=== PATIENT | male | born 1960 | race Caucasian/White ===

== ENCOUNTER 2017-05-12 06:07 | Observation (INO) | payer MEDICARE ==
--- NOTE | ~2017-05-12 | CT16 ---
[facility] A Service of [facility] RADIOLOGY TEXT RESULTS PATIENT: RAMSES ROLAND LOCATION: [facility] : 56 UNIT #: [id number] AGE: [address]: Rayshawn Gomez MD SEX: M ORDER DR: [id number] [facility] [address] [place], [place] [address] [id number] E MR#: [id number] Acc #: [id number] NAME: RAMSES ROLAND : 1960 SEX: M STUDY DATE/TIME: 05/12/2017 0859 UNIT: [facility] ROOM: STUDY DESCRIPTION: CT Angio Chest for PE Attending Physician: Rayshawn Gomez M.D. Ordering Physician: Rayshawn Gomez M.D. Primary Care Physician: No Primary Care Physician MEDICAL IMAGING REPORT This report is preliminary unless electronic signature is present EXAM CT angiogram chest for pulmonary embolism, 05/12/2017, 0849 hours. CLINICAL HISTORY Burning pain in the right leg today with chest pressure for 2 hours today. History of prior blood clots. COMPARISON Chest CT, 10/26/2005. TECHNIQUE Dynamic helical CT angiographic images were obtained from the thoracic inlet through the adrenal glands. 3-D sagittal and coronal reconstructions were performed. Contrast was Isovue-370 100 mL IV. Total exam DLP 561 mGy-cm. This CT exam was performed with one or more of the following radiation dose reduction techniques: automatic exposure control, adjustment of mA and/or kV according to patient size, and iterative reconstruction. FINDINGS Images through the thoracic inlet demonstrate no thyroid lesion or adenopathy. Images through the chest demonstrate diagnostic quality opacification of the pulmonary arteries. Main pulmonary arteries are normal in caliber. There are no filling defects present to suggest the presence of emboli. The aorta is moderately well opacified and is normal in caliber with no evidence of dissection. Coronary calcifications are present. Cardiac chambers, pericardium and esophagus are normal. There is no lymphadenopathy. Lung window images are unremarkable. [facility] A Service of [facility] RADIOLOGY TEXT RESULTS PATIENT: RAMSES ROLAND LOCATION: [facility] : 56 UNIT #: [id number] AGE: [address]: Rayshawn Gomez MD SEX: M ORDER DR: Limited views through the upper abdomen demonstrate diffuse low attenuation of the liver relative to the spleen suggesting fatty infiltration. There is no focal liver lesion. The spleen, visualized portions of the pancreas, and adrenal glands are normal. IMPRESSION 1. No evidence of pulmonary embolism. Normal aorta. 2. The lungs are clear and there is no pleural effusion or pneumothorax. 3. Mild fatty change in the liver. Dictated by... Kareen Rangel M.D. THIS IS AN ELECTRONICALLY VERIFIED REPORT Kareen Rangel M.D. at 05/12/2017 2:34 PM NEVILLE/vinayak TD: 05/12/2017 10:17 JOB #: [id number] MEDICAL IMAGING REPORT Page 1 of 1 COPY
--- NOTE | ~2017-05-12 | TH ---
Unit #: [id number] #: [id number] Patient: RAMSES ROLAND [id number] [address] [address] [id number] I MR#: [id number] NAME: RAMSES ROLAND : 1960 SEX: M STUDY DATE/TIME: UNIT: [facility] ROOM: 569 STUDY DESCRIPTION: Nuclear Study Attending Physician: Judie Bravo M.D. Primary Care Physician: No Primary Care Physician CARDIOLOGY REPORT EXAM Exercise Cardiolite Stress Test - Nuclear Portion PROCEDURE Using technetium 99m labeled Cardiolite, rest and stress SPECT images were obtained. Multiple SPECT images were obtained in various views including horizontal and vertical long axis and short axis views of the left ventricle. Images were obtained by gated SPECT method. The patient was administered 10.74 mCi of Cardiolite at rest. The patient was administered 33.2 mCi of Cardiolite at peak exercise. Total exercise time is 8 minutes 20 seconds. On the stress images, there is normal perfusion noted. The rest images show normal perfusion. Comparing rest and stress images, there is no stress-induced ischemia noted. The left ventricular ejection fraction is calculated to be 68%. There is no focal wall motion abnormality seen. CONCLUSION 1. No stress-induced ischemia noted. 2. The left ventricular ejection fraction is calculated to be 68%. 3. There is no focal wall motion abnormality seen. 4. Normal exercise Cardiolite stress test. Dictated by... Akosua Otto TD: 05/14/2017 08:27 JOB #: [id number] Unit #: [id number] #: [id number] Patient: RAMSES ROLAND CARDIOLOGY REPORT Page 1 of 1 X Adele Jonas MD <ELECTRONICALLY SIGNED> 05/28/17 1429 CARDIOLOGY REPORT
--- NOTE | ~2017-05-12 | ST ---
Unit #: [id number] #: [id number] Patient: RAMSES ROLAND [id number] [facility]. [address] [address] [id number] I MR#: [id number] NAME: RAMSES ROLAND : 1960 SEX: M STUDY DATE/TIME: 05/13/2017 UNIT: [facility] ROOM: 569 STUDY DESCRIPTION: Stress Test Attending Physician: Judie Bravo M.D. Primary Care Physician: No Primary Care Physician CARDIOLOGY REPORT EXAM EKG Portion of a Cardiolite Exercise Stress Test REASON FOR EXAM Chest pain. DESCRIPTION Baseline EKG is normal sinus rhythm with ventricular rate of 81 and nonspecific T wave changes. The patient exercised on the treadmill according to the Hayden protocol for 8 minutes 20 seconds achieving a workload of 10.10 METs. Resting heart rate was 81. Maximal heart rate was 148 beats/minute representing 91% of maximal predicted heart rate for age. The patient's symptoms were some right knee pain. There were no ST or ischemic changes. The patient did experience a rare unifocal PVC. The test was stopped due to achieving heart rate. IMPRESSION This is a negative test. There were no ischemic changes. There was a rare unifocal PVC during the test. The patient had some right knee pain. Please correlate with Cardiolite imaging. Dictated by... Yola Pollack APRN for Akosua Otto TD: 05/13/2017 09:44 JOB #: [id number] CARDIOLOGY REPORT Page 1 of 1 X CARDIOLOGY REPORT
--- NOTE | ~2017-05-12 | CR72 ---
[facility] A Service of [facility] & [facility] RADIOLOGY TEXT RESULTS PATIENT: RAMSES ROLAND LOCATION: [facility] [place] [facility] 569-01 : [birth year] UNIT #: [id number] AGE: [address]: Judie Bravo MD SEX: M ORDER DR: [id number] [facility] [address], [place] [address] [id number] E MR#: [id number] Acc #: [id number] NAME: RAMSES ROLAND : 1960 SEX: M STUDY DATE/TIME: 05/12/2017 6:35 UNIT: [facility] ROOM: STUDY DESCRIPTION: CR Chest Single View Portable Attending Physician: Rayshawn Gomez M.D. Ordering Physician: Rayshawn Gomez M.D. Primary Care Physician: Primary Care Physician No MEDICAL IMAGING REPORT This report is preliminary unless electronic signature is present EXAM Portable chest, 05/12/2017 COMPARISON 03/25/2015 CLINICAL HISTORY Chest pain since this morning. FINDINGS A single AP portable view of the chest shows both lungs to be clear. The heart is normal in size. The mediastinal contour is normal. No significant bone abnormalities are seen. IMPRESSION Normal portable chest. Dictated by... Lincoln Kim M.D. THIS IS AN ELECTRONICALLY VERIFIED REPORT Lincoln Kim M.D. at 05/18/2017 10:37 AM LEXA/dimas TD: 05/12/2017 07:56 JOB #: [id number] MEDICAL IMAGING REPORT Page 1 of 1 COPY
--- NOTE | ~2017-05-12 | CO ---
Unit #: [id number] #: [id number] Patient: RAMSES ROLAND [id number] [address] [place], [place] [address] [id number] I MR#: [id number] NAME: ARMSES ROLAND ROOM: 569 Age: 56 Sex: M Admission Date: 05/12/2017 : 1960 Attending Physician: Lorena Duran M.D. Primary Care Physician: No Primary Care Physician CONSULTATION REPORT REASON FOR CONSULTATION Chest pain. HISTORY OF PRESENT ILLNESS This is a 56-year-old white male who comes to the emergency room with a complaint of chest pain. He says at 3:30 in the a.m. he had substernal chest pain which he describes as a "clamp or vise" type pain that did not radiate to his neck, arm or jaw. He had no associated shortness of breath, diaphoresis or nausea. He says he has occasional right shoulder and hip pain which he contributes to osteoarthritis. Yesterday, prior to the event, he drank six or seven beers in the afternoon. He says he has occasional muscle soreness in his legs when he walks. He has recent ankle swelling. Reports occasional dizziness but no fever, chills or palpitations. In the emergency room, his troponin is negative. Electrocardiogram normal. Urine drug screen positive for cocaine and opiates. His risk factors for ischemic heart disease include hypertension and nicotine abuse for which he quit smoking over a year ago. He does drink alcohol on most occasions. He had a stress test in 2009 that was normal. He is on anticoagulation with Coumadin for a history of pulmonary embolism that was diagnosed a year and a half ago when he underwent total knee replacement. PAST MEDICAL HISTORY 1. 2D echocardiogram 09/21/2010 shows an ejection fraction of 50% to 55%. He had no regional wall abnormalities. There was trace mitral regurgitation and trace tricuspid regurgitation. 2. Lexiscan Cardiolite stress test 09/21/2010 showed no ischemia. Ejection fraction of 54%. 3. Hypertension. 4. GERD. 5. Osteoarthritis,. 6. Chronic back pain. 7. Pulmonary embolism, on anticoagulation with Coumadin. PAST SURGICAL HISTORY 1. Back surgery. 2. Neck surgery. 3. Left jaw surgery. 4. Right knee surgery. SOCIAL HISTORY The patient is and not employed. He quit smoking a year and a half ago but previously smoked at least a pack of cigarettes every three to four days. He admits to drinking seven to eight beers on most Unit #: [id number] #: [id number] Patient: ARMSES ROLAND. FAMILY HISTORY Negative for premature coronary artery disease in immediate family member. ALLERGIES Codeine. HOME MEDICATIONS 1. Hydrochlorothiazide 25 mg daily. 2. Hydrocodone/acetaminophen 10/325 t.i.d. p.r.n. 3. Meloxicam 15 mg daily. 4. Coumadin 5 mg daily. 5. Fluoxetine 20 mg - I am not sure if it is daily. 6. Benadryl 25 mg daily. 7. Clonazepam 1 mg q. h.s. 8. Lisinopril 40 mg daily. 9. Prilosec 20 mg daily. REVIEW OF SYSTEMS CONSTITUTIONAL: Negative for fever or chills. Reports muscle weakness in his lower extremities and generalized weakness. No fatigue. No fever or chills. HEENT: No headache, no hearing or visual changes or difficulty with swallowing. Has occasional dizziness. CARDIOVASCULAR: Has chest pain as described in the HPI. No palpitations. Denies paroxysmal nocturnal dyspnea or orthopnea. No syncope or near syncope. RESPIRATORY: Negative for dyspnea, cough or hemoptysis. GASTROINTESTINAL: No abdominal pain, nausea or vomiting. No constipation or melena. EXTREMITIES: Has occasional lower extremity edema. Reports muscle weakness. PHYSICAL EXAMINATION VITAL SIGNS: Blood pressure 157/99, heart rate 82, temperature 97.7, BMI 30. GENERAL: This is a mildly obese 56-year-old white male who is in no acute respiratory distress. No (1) . He is awake, alert and oriented. There are no focal weaknesses. NECK: Trachea is midline. No thyromegaly or lymphadenopathy. No jugular venous distention. HEART: S1, S2 heart sounds are normal. No murmurs, no rubs or clicks. Regular rate and rhythm. LUNGS: Clear without rales, rhonchi or wheezing. ABDOMEN: Soft, nontender. Bowel sounds present. No organomegaly. EXTREMITIES: Without leg edema. SKIN: Warm and dry. DIAGNOSTIC STUDIES LABORATORY: Glucose 94, BUN 42, creatinine 2.9, sodium 136, potassium 3.8, AST 93, ALT 42, CK 3172. Alcohol is 79. Protime 43.8, INR 4.0. CK MB 33.8, troponin less than 0.05 x2. White count 10.1, hemoglobin 15.3, hematocrit 44.7, platelet count 367. IMAGING: CT angio of the chest negative for pulmonary embolism. Mild fatty change in liver. Unit #: [id number] #: [id number] Patient: RAMSES ROLAND Chest x-ray - no active disease. CARDIOVASCULAR: Electrocardiogram - normal sinus rhythm, rate 88 beats/minute, otherwise normal. IMPRESSION 1. Chest pain, probably secondary to gastroesophageal reflux disease. 2. Cocaine abuse. 3. ETOH abuse. 4. Rhabdomyolysis. 5. Acute kidney injury secondary to rhabdomyolysis. 6. History of pulmonary embolism, on anticoagulation with Coumadin. PLAN 1. Cardiology was consulted for evaluation of chest pain. The patient's chest pain is most likely secondary to GERD. Will schedule the patient for Lexiscan Cardiolite stress test in the a.m. to rule out coronary artery disease given his repeat troponin is negative. 2. Will alkalize the urine with bicarbonate IV fluids. 3. Check thyroid function. 4. Repeat the electrocardiogram. 5. Start on IV Protonix for GERD. 6. 2D echocardiogram will be obtained to evaluate left ventricular systolic function. 7. Will follow the patient with you. Thank you for allowing us to assist with this patient's care. Dictated by... Rasta Espino A.P.R.N. for Akosua Rodriguez/dipti TD: 05/13/2017 06:42 JOB #: [id number] CONSULTATION REPORT Page 1 of 1 X Rasta Espino APRN X CONSULTATION REPORT
--- NOTE | ~2017-05-12 | EKG ---
PATIENT: RAMSES ROLAND UNIT #: [id number] Ventricular Rate: 80 BPM Atrial Rate: 80 BPM P-R Interval: 152 ms QRS Duration: 84 ms Q-T Interval: 364 ms QTC Calculation(Bezet): 419 ms P [place]: 56 degrees Calculated R [place]: 25 degrees Calculated T [place]: 38 degrees Diagnosis Line: Normal sinus rhythm Diagnosis Line: Normal ECG Diagnosis Line: When compared with ECG of 12-MAY-2017 06:12, Diagnosis Line: (unconfirmed) Diagnosis Line: No significant change was found Diagnosis Line: Confirmed by OBEY GERARDO MD ([id number]) on Diagnosis Line: 05/13/2017 8:03:11 AM INTERPRETING MD: HUMAIRA GRAMAJO
--- NOTE | ~2017-05-12 | US77 ---
[facility] A Service of [facility] & [facility] RADIOLOGY TEXT RESULTS PATIENT: RAMSES ROLAND LOCATION: [facility] : 56 UNIT #: [id number] AGE: [address]: Rayshawn Gomez MD SEX: M ORDER DR: [id number] [facility] [address] [place], [place] [address] [id number] E MR#: [id number] Acc #: [id number] NAME: RAMSES ROLAND : 1960 SEX: M STUDY DATE/TIME: 05/12/2017 14:47 UNIT: [facility] ROOM: STUDY DESCRIPTION: US Kidney Bilateral Complete Attending Physician: Rayshawn Gomez M.D. Ordering Physician: Lorena Duran M.D. MEDICAL IMAGING REPORT This report is preliminary unless electronic signature is present EXAM Renal ultrasound 05/12 INDICATIONS Abnormal labs. Acute renal insufficiency. Elevated creatinine to 0.9 with low eGFR 22.8. FINDINGS Sonogram evaluation is for the kidneys in multiple planes. Right kidney measures 10.2 cm in tero-dd-npsn length. Left kidney measures 11.7 cm. Both are morphologically normal and non-obstructed. The bladder is normal. IMPRESSION Normal non-obstructed kidneys. Dictated by... Dameon Crowe Jr., M.D. THIS IS AN ELECTRONICALLY VERIFIED REPORT Dameon Crowe Jr., M.D. at 05/12/2017 4:58 PM AR/benjamin TD: 05/12/2017 16:49 JOB #: [id number] MEDICAL IMAGING REPORT Page 1 of 1 COPY
--- NOTE | ~2017-05-12 | HP ---
Unit #: [id number] #: [id number] Patient: RAMSES ROLAND [id number] [facility]. [place], [place] [address] [id number] E MR#: [id number] NAME: RAMSES ROLAND ROOM: Age: 56 Sex: M Admission Date: 05/12/2017 : 1960 Attending Physician: Rayshawn Gomez M.D. Primary Care Physician: No Primary Care Physician HISTORY AND PHYSICAL CHIEF COMPLAINT Chest pain. HISTORY OF PRESENT ILLNESS The patient is a 56-year-old male with a past medical history of alcohol abuse, PE, chronic anticoagulation, hypertension, chronic back pain. He presented to the emergency department for evaluation of the above. The patient states that he was in his usual state of health until the day of admission, when he developed chest pain. He states that it happened around 3:30 in the morning. He was not asleep at that time. He states that the pain is in the mid chest. He describes it as "like a vice." It did not radiate. He denies any shortness of breath, nausea or diaphoresis in association with the pain. He states that he had similar pain in 2009. He had a stress test at that time that was negative. In the emergency department initial pulse and blood pressure were 89 and 142/99 respectively. Oxygen saturation was 98% on room air. He had a CT of the chest PE protocol that showed no PE. EKG showed normal sinus rhythm at 88 beats per minute. Initial cardiac enzymes are negative. He also received a GI cocktail as well as sublingual nitroglycerin and [place]. The patient states that the pain is still present. Notable labs include BUN and creatinine of 42 and 2.9 respectively. Urine tox screen is positive for cocaine and opiates. CPK is 3,172. Blood alcohol level is 79. He is being admitted to [facility] for evaluation and further treatment. PAST MEDICAL HISTORY 1. Admission to [facility] 09/20/2010 for chest pain. He underwent stress test during that admission that was negative and showed an ejection fraction of 54%. 2. Hypertension. 3. Pulmonary embolism on chronic anticoagulation with Coumadin. 4. Chronic back pain, maintained on narcotics. PAST SURGICAL HISTORY 1. Neck surgery. 2. Surgery on the mandible for what sounds like possible osteonecrosis. 3. Knee surgery. SOCIAL HISTORY The patient lives with his . There is no tobacco use. He is a former Unit #: [id number] #: [id number] Patient: RAMSES ROLAND smoker. He quit about a year and a half ago. He states that he smoked for 45 years. He denied illicit drug use, although his tox screen was positive for cocaine. He states that he is an alcoholic. His last drink was yesterday. He states that prior to that it had been about a year since he had anything to drink. He states that he goes to [employer]. He is retired. FAMILY HISTORY Notable for his paternal uncle dying of a myocardial infarction in his 70s. ALLERGIES Codeine. HOME MEDICATIONS 1. Hydrochlorothiazide 25 mg daily. 2. Hydrocodone/acetaminophen 10/325 mg t.i.d. p.r.n. 3. Meloxicam 15 mg daily. 4. Coumadin 5 mg daily. 5. Fluoxetine is listed as 20 mg t.i.d. 6. Diphenhydramine 25 mg daily. 7. Klonopin 1 mg at bedtime. 8. Zestril 40 mg daily. 9. Prilosec 20 mg daily. REVIEW OF SYSTEMS A complete review of systems is negative except as indicated in the history of present illness. The patient states that he has not taken any medication for three days due to not being at home. PHYSICAL EXAMINATION GENERAL: The patient is a male who smells of alcohol. He is in no acute distress. VITALS: Temperature 97.7, pulse 89, respiratory rate 17, blood pressure 142/99, oxygen saturation 98% on room air. HEENT: The head is atraumatic. Mucous membranes are moist. NECK: Supple. Trachea midline. LUNGS: Clear to auscultation bilaterally with no increased work of breathing. HEART: Regular rate and rhythm. ABDOMEN: Soft and nontender with bowel sounds present in all four quadrants. EXTREMITIES: Nontender with no pedal edema. NEUROLOGIC: The patient is awake and alert. He follows commands. PSYCHIATRIC: Mood and affect are normal. The patient is cooperative. SKIN: Skin of examined areas is warm and dry. DIAGNOSTIC STUDIES IMAGING: CT of the chest PE protocol shows no PE. Lungs are clear. Chest x-ray is normal. LABORATORY: Urine tox screen is positive for cocaine and opiates. CPK is 3,172. CMP notable for CO2 18. Anion gap is 13, BUN 42, creatinine 2.9, AST 93, ALT 42. Troponin is less than 0.05. INR is 4. Blood alcohol level is 79. CBC is completely normal. CARDIOVASCULAR: EKG shows normal sinus rhythm with a rate of 88 beats per Unit #: [id number] #: [id number] Patient: RAMSES ROLAND. ASSESSMENT The patient is a 56-year-old male with 1. Chest pain. The patient had a stress test in 2009 that was negative. He is cocaine positive today. 2. Acute kidney injury. The patient's creatinine was 1.3 on 09/20/2010 and it is 2.9 today. He is on several medications which could be contributing, including meloxicam, Zestril, hydrochlorothiazide. The patient received 1 liter of normal saline in the emergency department. 3. Rhabdomyolysis with an initial CPK of 3,172, likely related to cocaine abuse. 4. Cocaine abuse. The patient denies illicit drug use. 5. Alcohol abuse with intoxication. 6. History of PE, maintained on chronic anticoagulation with Coumadin. Initially CT of the chest PE protocol was ordered due to the patient saying that he had not taken medication for four days and presumably thinking that his INR was going to be subtherapeutic. He received contrast prior to creatinine being checked. 7. Chronic anticoagulation with Coumadin. The patient's INR is 4. 8. Hypertension. 9. Chronic back pain, maintained on hydrocodone. 10. Former smoker. 11. Transaminitis, likely secondary to alcohol abuse. PLAN 1. Admit for observation to intermediate level. 2. Fasting lipid panel. 3. Serial cardiac enzymes. 4. Consult Dr. Jonas regarding chest pain. 5. Urine sodium and creatinine and eosinophils. 6. Renal ultrasound. 7. Strict ins and outs. 8. Alcohol withdrawal protocol with fluids to start now. 9. Hold lisinopril, hydrochlorothiazide, meloxicam. 10. resident care manager, social science manager consult regarding alcohol and cocaine abuse. 11. Check magnesium level. 12. Repeat labs in the morning, including INR and CPK. 13. Additional workup and consults based on the above. Dictated by Lorena Duran M.D. AW/gz TD: 05/12/2017 13:23 JOB #: [id number] Unit #: [id number] #: [id number] Patient: RAMSES ROLAND HISTORY AND PHYSICAL Page 1 of 1 X Lorena Duran MD X HISTORY AND PHYSICAL
--- NOTE | ~2017-05-12 | EKG ---
PATIENT: RAMSES ROLAND UNIT #: [id number] Ventricular Rate: 88 BPM Atrial Rate: 88 BPM P-R Interval: 148 ms QRS Duration: 86 ms Q-T Interval: 356 ms QTC Calculation(Bezet): 430 ms P [place]: 48 degrees Calculated R [place]: 46 degrees Calculated T [place]: 46 degrees Diagnosis Line: Normal sinus rhythm Diagnosis Line: Normal ECG Diagnosis Line: When compared with ECG of 21-SEP-2010 11:03, Diagnosis Line: No significant change was found Diagnosis Line: Confirmed by OBEY GERARDO MD ([id number]) on Diagnosis Line: 05/13/2017 7:58:29 AM INTERPRETING MD: HUMAIRA GRAMAJO
[~2017-05-12 06:07] MED LIST: LORTAB 10-5001 EACH PO; NEURONTIN; PRILOSEC PO; PRINIVIL40 MG PO; PROZAC PO; VISTARIL PO
[2017-05-12 06:44] LABS: BASOPHIL# 0.1 X10e3 (0-0.3); EOSINOPHIL# 0.1 X10e3 (0-0.7); EOSINOPHIL% 1.2 % (0.0-7.0); HEMATOCRIT 44.7 % (38.0-50.0); HEMOGLOBIN 15.3 gm/dL (13.0-16.0); LYMPHOCYTE# 3.5 X10e3 (1.0-3.5); MEAN CELL VOLUME 86.3 FL (83-96); MEAN CORPUSCULAR HEMOGLOBIN 29.6 PG (28-34); MEAN CORPUSCULAR HGB CONC 34.2 g/dL (30-36); MEAN PLATELET VOLUME 9.2 FL (6.5-11.5); MONOCYTE# 1.5 X10e3 (0-1.0); MONOCYTE% 14.6 % (3.0-12.0); NEUTROPHIL# 4.9 X10e3 (1.5-7.1); NEUTROPHIL% 48.2 % (40-75); PLATELET COUNT 367 X10e3 (140-420); RED BLOOD COUNT 5.18 X10e (3.90-5.60); RED CELL DISTRIBUTION WIDTH 13.5 % (11.0-15.5); WHITE BLOOD COUNT 10.1 X10e3 (4.0-10.5)
[2017-05-12 06:47] LABS: DIFF IND NO
[2017-05-12 07:00] LABS: POC - CKMB 27.4 ng/mL (0.0-7.9); POC - TROPONIN <0.05 ng/mL (<=0.05)
[2017-05-12 07:14] LABS: PARTIAL THROMBOPLASTIN TIME 40.9 SECONDS (23.5-31.3); PROTHROMBIN TIME (PATIENT) 43.8 SECONDS (10.0-11.7)
[2017-05-12 08:23] LABS: POC - CKMB 33.8 ng/mL (0.0-7.9); POC - TROPONIN <0.05 ng/mL (<=0.05)
[2017-05-12 08:38] LABS: ALBUMIN SERUM 4.6 g/dL (3.5-5.0); BILIRUBIN, DIRECT 0.3 mg/dL (0.0-0.2); BILIRUBIN,INDIRECT 0.5 mg/dL (0.0-0.9); BILIRUBIN,TOTAL 0.8 mg/dL (0.2-2.0); BUN/CREATININE RATIO 14.48; CALCIUM SERUM 8.9 mg/dL (8.4-10.2); CREATININE SERUM 2.9 mg/dL (0.6-1.4); GLOM FILT RATE Estimated 22.8 mL/min (>60); POTASSIUM 3.8 mmol/L (3.5-5.1)
[2017-05-12 09:23] LABS: AMPHETAMINE NEG (NEG); BARBITURATES NEG (NEG); BENZODIAZEPINES NEG (NEG); COCAINE POS (NEG); MARIJUANA NEG (NEG); OPIATES POS (NEG); TRICYCLIC ANTIDEPRESSANTS NEG (NEG); U METHADONE NEG (NEG)
[2017-05-12] MEDS ORDERED: PATIENT'S PHARMACY (09:49)
[2017-05-12] MEDS ORDERED: HYDROCODON-ACE1 EAC5 PO (09:50)
[2017-05-12] MEDS ORDERED: HYDROCHLOROTHIA25 MG PO (09:50)
[2017-05-12] MEDS ORDERED: COUMADIN PO (09:50)
[2017-05-12] MEDS ORDERED: MOBIC PO (09:50)
[2017-05-12] MEDS ORDERED: SARAFEM20 MG PO (09:50)
[2017-05-12] MEDS ORDERED: ALLERGY RELIEF25 MG PO (09:51)
[2017-05-12] MEDS ORDERED: KLONOPIN1 M1 PO (09:51)
[2017-05-12] MEDS ORDERED: LISINOPRIL PO (09:51)
[2017-05-12] MEDS ORDERED: PRILOSEC PO (09:51)
[2017-05-12 15:17] LABS: THYROID STIMULATING HORMONE 0.18 uIU/ml (0.34-5.60)
[2017-05-12 15:24] LABS: FREE THYROXIN (T4) 0.78 ng/dL (0.58-1.64)
[2017-05-12 22:47] LABS: CHOLESTEROL 175 mg/dL (0-200); HDL CHOLESTEROL 32 mg/dL (29-75); LDL CHOLESTEROL 123 mg/dL (-130); LDL/HDL RATIO 4 RATIO (0-4); TRIGLYCERIDES 98 mg/dL (10-160)
[2017-05-12 23:05] LABS: %MB 1.1 % (0.0-4.0); MB 21.9 ng/ml
[2017-05-13 03:50] LABS: BASOPHIL% 0.6 % (0-2.5); EOSINOPHIL# 0.3 X10e3 (0-0.7); HEMATOCRIT 42.4 % (38.0-50.0); HEMOGLOBIN 14.1 gm/dL (13.0-16.0); LYMPHOCYTE# 2.6 X10e3 (1.0-3.5); LYMPHOCYTE% 35.1 % (17.0-45.0); MEAN CELL VOLUME 86.7 FL (83-96); MEAN CORPUSCULAR HEMOGLOBIN 28.9 PG (28-34); MEAN CORPUSCULAR HGB CONC 33.4 g/dL (30-36); MEAN PLATELET VOLUME 8.3 FL (6.5-11.5); MONOCYTE% 13.8 % (3.0-12.0); NEUTROPHIL# 3.4 X10e3 (1.5-7.1); NEUTROPHIL% 46.5 % (40-75); PLATELET COUNT 221 X10e3 (140-420); RED BLOOD COUNT 4.89 X10e (3.90-5.60); RED CELL DISTRIBUTION WIDTH 13.2 % (11.0-15.5); WHITE BLOOD COUNT 7.4 X10e3 (4.0-10.5)
[2017-05-13 03:52] LABS: DIFF IND NO
[2017-05-13 03:57] LABS: INR 3.7; PROTHROMBIN TIME (PATIENT) 40.3 SECONDS (10.0-11.7)
[2017-05-13 04:14] LABS: BILIRUBIN,TOTAL 0.6 mg/dL (0.2-2.0); BUN/CREATININE RATIO 21.53; CALCIUM SERUM 8.7 mg/dL (8.4-10.2); CREATININE SERUM 1.3 mg/dL (0.6-1.4); GLOM FILT RATE Estimated 60.2 mL/min (>60); POTASSIUM 3.8 mmol/L (3.5-5.1); PROTEIN TOTAL SERUM 7.5 g/dL (6.0-8.3)
[2017-05-13 04:46] LABS: %MB 1.1 % (0.0-4.0); MB 17.9 ng/ml
[2017-05-13 07:11] LABS: CREATININE,RANDOM URINE 91 mg/dL; SODIUM URINE RANDOM 113 mmol/L
[2017-05-13] MEDS ORDERED: NORVASC PO (16:12)
[2017-05-13] MEDS ORDERED: MULTI-DAY VITA1 EACH PO (16:15)
== END 2017-05-13 18:08 | disposition home or self-care (01) ==
LOC: CED 06:07 → CEDOF 13:05 → CED 18:22 → C5C 18:34 → CEDOF 18:34 → C5C 05-13 09:05
PROVIDERS: Emergency Medicine; Family Medicine; Internal Medicine Cardiovascular Disease
DX: R07.89 Other chest pain (principal); F14.10 Cocaine abuse, uncomplicated; F10.10 Alcohol abuse, uncomplicated; M62.82 Rhabdomyolysis; N17.9 Acute kidney failure, unspecified; Z86.711 Personal history of pulmonary embolism; Z79.01 Long term (current) use of anticoagulants; K21.9 Gastro-esophageal reflux disease without esophagitis; R74.0 Nonspecific elevation of levels of transaminase and lactic acid dehydrogenase [LDH]; Z87.891 Personal history of nicotine dependence; M54.9 Dorsalgia, unspecified; G89.29 Other chronic pain
CPT/HCPCS: 36415; 51701; 71010; 71275; 76770; 78452; 80048; 80053; 80061; 80076; 80307; 82550; 82553; 82570; 83735; 84300; 84439; 84443; 84484; 85025; 85610; 85730; 89190; 93005; 93017; 93306; 96360; 96361; 96374; 96376; 99285; A9500; C9113; G0378; G0480; Q9967